=== PATIENT | female | born 1945 | race Caucasian/White ===

== ENCOUNTER → 2016-08-23 | Outpatient (CLI) | payer MEDICARE ==
[2016-08-23 10:04] LABS: Appearance,Urine Cloudy (Clear); Bilirubin,Urine Negative (Negative); Glucose,Urine (UA) Negative (Negative); Ketones,Urine Negative (Negative); Leukocyte Esterase,Urine Moderate (Negative); Mucus,Urine Rare /hpf; Nitrite,Urine Negative (Negative); Particle Count 6248; Protein,Urine Trace (Negative); RBC,Urine 1 /hpf (0-5); Specific Gravity,Urine 1.022 (1.001-1.035); Squamous Epithelial Cell,Urine 4 /hpf (0-4); UA Billing (MACRO vs. MICRO) MICRO; Urobilinogen,Urine <2.0 mg/dL (<2.0); WBC,Urine 2 /hpf (0-5)
[2016-08-23 10:18] LABS: ALT 38 U/L (9-52); AST 23 U/L (14-36); Alkaline Phosphatase 125 U/L (38-126); Anion Gap 10 mmol/L; Blood Urea Nitrogen 26 mg/dL (7-17); Calcium 10.3 mg/dL (8.4-10.2); Carbon Dioxide 26 mmol/L (22-30); Chloride 103 mmol/L (98-107); Cholesterol 136 mg/dL (<200); Glucose 133 mg/dL (74-99); HDL Cholesterol 59 mg/dL (40-60); Non-African American GFR(MDRD) >60 (>60 ml/min/1.73 sqM); Potassium 4.8 mmol/L (3.5-5.1); Sodium 139 mmol/L (137-145); Total Bilirubin 0.5 mg/dL (0.2-1.3); Total Protein 6.6 g/dL (6.3-8.2); Triglycerides 138 mg/dL (<150)
[2016-08-23 12:58] LABS: Hemoglobin A1C 6.6 % (4.2-6.1)
== END | disposition home or self-care (01) ==
LOC: LABWHC1 08:52
PROVIDERS: ATTEND Family Medicine
DX: Z00.00 Encounter for general adult medical examination without abnormal findings (principal); K21.0 Gastro-esophageal reflux disease with esophagitis; E78.5 Hyperlipidemia, unspecified; E11.9 Type 2 diabetes mellitus without complications
CPT/HCPCS: 36415; 80053; 80061; 81001; 82043; 83036

== ENCOUNTER → 2017-01-24 | Outpatient (CLI) | payer MEDICARE ==
[2017-01-24 11:05] LABS: ALT 35 U/L (9-52); AST 17 U/L (14-36); Alkaline Phosphatase 118 U/L (38-126); Anion Gap 10 mmol/L; Blood Urea Nitrogen 16 mg/dL (7-17); Calcium 9.3 mg/dL (8.4-10.2); Carbon Dioxide 24 mmol/L (22-30); Chloride 104 mmol/L (98-107); Cholesterol 141 mg/dL (<200); Glucose 157 mg/dL (74-99); HDL Cholesterol 62 mg/dL (40-60); Non-African American GFR(MDRD) >60 (>60 ml/min/1.73 sqM); Potassium 4.5 mmol/L (3.5-5.1); Sodium 138 mmol/L (137-145); Total Bilirubin 0.3 mg/dL (0.2-1.3); Total Protein 6.1 g/dL (6.3-8.2)
== END | disposition home or self-care (01) ==
LOC: LABWHC1 09:56
PROVIDERS: ATTEND Family Medicine
DX: Z00.00 Encounter for general adult medical examination without abnormal findings (principal); E78.5 Hyperlipidemia, unspecified; E11.9 Type 2 diabetes mellitus without complications; K21.0 Gastro-esophageal reflux disease with esophagitis
CPT/HCPCS: 36415; 80053; 80061; 83036

== ENCOUNTER → 2017-03-13 | Outpatient (CLI) | payer MEDICARE ==
--- NOTE | 2017-03-14 07:55 | MM ---
Reason for exam: screening (asymptomatic). Last mammogram was performed 1 year and 1 month ago. History: Patient is postmenopausal. Benign left mammotome panel of the left breast, August 09, 2007. Benign left mammotome panel of the left breast, August 09, 2007. Benign right mammotome panel of the right breast, October 19, 2006. Reductions of both breasts, June 2005. Benign right mammotome panel of the right breast, June 02, 2005. Benign excisional biopsy of the right breast, 1959. Physical Findings: A clinical breast exam by your physician is recommended on an annual basis and results should be correlated with mammographic findings. MG 3D Screening Mammo W/Cad Bilateral CC and MLO view(s) were taken. CV view(s) were taken of the left breast. Prior study comparison: February 07, 2016, bilateral MG 3d screening mammo w/cad. November 23, 2014, bilateral MG diagnostic mammo w CAD [facility]. There are scattered fibroglandular densities. Stable benign calcifications. Stable focal asymmetry inner left breast. No significant changes when compared with prior studies. ASSESSMENT: Benign, BI-RAD 2 RECOMMENDATION: Routine screening mammogram of both breasts in 1 year.
== END | disposition home or self-care (01) ==
LOC: RADMAMWWP 09:55
PROVIDERS: ATTEND Family Medicine
DX: Z12.31 Encounter for screening mammogram for malignant neoplasm of breast (principal)
CPT/HCPCS: 77063; G0202

== ENCOUNTER → 2017-05-23 | Outpatient (CLI) | payer MEDICARE ==
[2017-05-23 10:08] LABS: HCT 42.4 % (34.0-46.0); HGB 13.6 gm/dL (11.4-16.0); MCH 29.9 pg (25.0-35.0); MCHC 32.2 g/dL (31.0-37.0); Mean Platelet Volume 7.5; Platelet Count 187 k/uL (150-450); RBC 4.56 m/uL (3.80-5.40); WBC 4.5 k/uL (3.8-10.6)
[2017-05-23 10:23] LABS: ALT 42 U/L (9-52); AST 22 U/L (14-36); Albumin 4.1 g/dL (3.5-5.0); Alkaline Phosphatase 99 U/L (38-126); Anion Gap 11 mmol/L; Blood Urea Nitrogen 19 mg/dL (7-17); Calcium 10.1 mg/dL (8.4-10.2); Carbon Dioxide 28 mmol/L (22-30); Chloride 101 mmol/L (98-107); Cholesterol 140 mg/dL (<200); Glucose 170 mg/dL (74-99); HDL Cholesterol 66 mg/dL (40-60); LDL Cholesterol,Calculated 41 mg/dL (0-99); Potassium 4.2 mmol/L (3.5-5.1); Sodium 140 mmol/L (137-145); Total Bilirubin 0.3 mg/dL (0.2-1.3); Total Protein 6.4 g/dL (6.3-8.2); Triglycerides 165 mg/dL (<150)
[2017-05-23 18:35] LABS: Hemoglobin A1C 7.1 % (4.0-6.0)
== END | disposition home or self-care (01) ==
LOC: LABWHC1 09:16
PROVIDERS: ATTEND Family Medicine
DX: E78.5 Hyperlipidemia, unspecified (principal); E11.9 Type 2 diabetes mellitus without complications; K21.9 Gastro-esophageal reflux disease without esophagitis; D64.9 Anemia, unspecified
CPT/HCPCS: 36415; 80053; 80061; 83036; 85027

== ENCOUNTER → 2017-09-18 | Outpatient (CLI) | payer MEDICARE ==
[2017-09-18 10:00] LABS: MCH 28.4 pg (25.0-35.0); MCHC 31.8 g/dL (31.0-37.0); MCV 89.2 fL (80.0-100.0); Mean Platelet Volume 7.7; Platelet Count 216 k/uL (150-450); RBC 4.93 m/uL (3.80-5.40); RDW 13.4 % (11.5-15.5); WBC 5.1 k/uL (3.8-10.6)
[2017-09-18 10:20] LABS: ALT 19 U/L (9-52); AST 20 U/L (14-36); Albumin 4.2 g/dL (3.5-5.0); Alkaline Phosphatase 91 U/L (38-126); Anion Gap 13 mmol/L; Blood Urea Nitrogen 17 mg/dL (7-17); Calcium 10.2 mg/dL (8.4-10.2); Carbon Dioxide 29 mmol/L (22-30); Chloride 99 mmol/L (98-107); Cholesterol 131 mg/dL (<200); Glucose 196 mg/dL (74-99); HDL Cholesterol 60 mg/dL (40-60); LDL Cholesterol,Calculated 44 mg/dL (0-99); Potassium 4.8 mmol/L (3.5-5.1); Sodium 141 mmol/L (137-145); Total Bilirubin 0.5 mg/dL (0.2-1.3); Total Protein 6.3 g/dL (6.3-8.2); Triglycerides 135 mg/dL (<150)
== END | disposition home or self-care (01) ==
LOC: LABWHC1 08:56
PROVIDERS: ATTEND Family Medicine
DX: E11.9 Type 2 diabetes mellitus without complications (principal); K21.9 Gastro-esophageal reflux disease without esophagitis; E78.5 Hyperlipidemia, unspecified; D64.9 Anemia, unspecified
CPT/HCPCS: 36415; 80053; 80061; 83036; 85027

== ENCOUNTER → 2018-01-23 | Outpatient (CLI) | payer MEDICARE ==
[2018-01-23 10:11] LABS: HCT 39.8 % (34.0-46.0); HGB 12.6 gm/dL (11.4-16.0); Hypochromasia Slight; MCH 28.6 pg (25.0-35.0); MCHC 31.6 g/dL (31.0-37.0); MCV 90.3 fL (80.0-100.0); Mean Platelet Volume 7.4; Platelet Count 189 k/uL (150-450); RBC 4.41 m/uL (3.80-5.40); RDW 14.1 % (11.5-15.5); WBC 5.2 k/uL (3.8-10.6)
[2018-01-23 10:36] LABS: ALT 29 U/L (9-52); AST 16 U/L (14-36); Albumin 3.6 g/dL (3.5-5.0); Alkaline Phosphatase 90 U/L (38-126); Anion Gap 8 mmol/L; Blood Urea Nitrogen 17 mg/dL (7-17); Calcium 9.3 mg/dL (8.4-10.2); Carbon Dioxide 27 mmol/L (22-30); Chloride 103 mmol/L (98-107); Cholesterol 132 mg/dL (<200); Glucose 139 mg/dL (74-99); HDL Cholesterol 58 mg/dL (40-60); LDL Cholesterol,Calculated 39 mg/dL (0-99); Potassium 4.5 mmol/L (3.5-5.1); Sodium 138 mmol/L (137-145); Total Bilirubin 0.2 mg/dL (0.2-1.3); Triglycerides 177 mg/dL (<150)
== END | disposition home or self-care (01) ==
LOC: LABWHC1 08:52
PROVIDERS: ATTEND Family Medicine
DX: E11.9 Type 2 diabetes mellitus without complications (principal); K21.9 Gastro-esophageal reflux disease without esophagitis; E78.5 Hyperlipidemia, unspecified; D64.9 Anemia, unspecified
CPT/HCPCS: 36415; 80053; 80061; 83036; 85027

== ENCOUNTER → 2018-03-21 | Outpatient (CLI) | payer MEDICARE ==
--- NOTE | 2018-03-22 14:02 | MM ---
Reason for exam: screening (asymptomatic). Last mammogram was performed 1 year ago. History: Patient is postmenopausal. Benign left mammotome panel of the left breast, August 09, 2007. Benign left mammotome panel of the left breast, August 09, 2007. Benign right mammotome panel of the right breast, October 19, 2006. Reductions of both breasts, June 2005. Benign right mammotome panel of the right breast, June 02, 2005. Benign excisional biopsy of the right breast, 1959. Physical Findings: A clinical breast exam by your physician is recommended on an annual basis and results should be correlated with mammographic findings. MG 3D Screening Mammo W/Cad Bilateral CC, MLO, and XCCL view(s) were taken. Prior study comparison: March 13, 2017, bilateral MG 3d screening mammo w/cad. February 07, 2016, bilateral MG 3d screening mammo w/cad. The breast tissue is almost entirely fat. Previous mammotome biopsy in the right breast. No significant changes when compared with prior studies. ASSESSMENT: Benign, BI-RAD 2 RECOMMENDATION: Routine screening mammogram of both breasts in 1 year.
== END | disposition home or self-care (01) ==
LOC: RADMAMWWP 10:07
PROVIDERS: ATTEND Family Medicine
DX: Z12.31 Encounter for screening mammogram for malignant neoplasm of breast (principal)
CPT/HCPCS: 77063; 77067

== ENCOUNTER → 2018-09-26 | Outpatient (CLI) | payer MEDICARE ==
[2018-09-26 08:17] LABS: Basophils # (A) 0.1 k/uL (0-0.2); Basophils % (A) 1 %; Eosinophils # (A) 0.3 k/uL (0-0.7); Eosinophils % (A) 5 %; HGB 11.4 gm/dL (11.4-16.0); Hypochromasia Marked; Lymphocytes # (A) 1.6 k/uL (1.0-4.8); Lymphocytes % (A) 25 %; MCH 24.1 pg (25.0-35.0); MCHC 30.1 g/dL (31.0-37.0); MCV 79.9 fL (80.0-100.0); Mean Platelet Volume 7.7; Monocytes # (A) 0.4 k/uL (0-1.0); Monocytes % (A) 6 %; Neutrophils # (A) 3.8 k/uL (1.3-7.7); Neutrophils % (A) 60 %; Platelet Count 269 k/uL (150-450); RBC 4.75 m/uL (3.80-5.40); RDW 15.5 % (11.5-15.5); WBC 6.4 k/uL (3.8-10.6)
[2018-09-26 11:51] LABS: Albumin 4.4 g/dL (3.80-4.90); Albumin/Globulin Ratio 2.75 (1.60-3.17); Anion Gap 8.6 mmol/L (4.00-12.00); Calcium 9.6 mg/dL (8.7-10.3); Carbon Dioxide 25.4 mmol/L (21.6-31.8); Globulin 1.6 g/dL (1.6-3.3); LDL Cholesterol,Calculated 46.4 mg/dL (0.0-131.0); Potassium 4.3 mmol/L (3.5-5.5); Total Bilirubin 0.3 mg/dL (0.3-1.2); VLDL Calculation 27.6 mg/dL (5.00-40.00)
[2018-09-26 13:27] LABS: Hemoglobin A1C 8.3 % (4.0-6.0)
== END | disposition home or self-care (01) ==
LOC: LABWHC1 07:49
PROVIDERS: ATTEND Family Medicine
DX: E11.9 Type 2 diabetes mellitus without complications (principal); E78.5 Hyperlipidemia, unspecified
CPT/HCPCS: 36415; 80053; 80061; 83036; 85025

== ENCOUNTER → 2019-01-28 | Outpatient (CLI) | payer MEDICARE ==
[2019-01-28 10:00] LABS: Anisocytosis Slight; Basophils # (A) 0.1 k/uL (0-0.2); Basophils % (A) 1 %; Eosinophils # (A) 0.3 k/uL (0-0.7); Eosinophils % (A) 5 %; HCT 39.7 % (34.0-46.0); HGB 11.5 gm/dL (11.4-16.0); Hypochromasia Marked; Lymphocytes # (A) 1.7 k/uL (1.0-4.8); Lymphocytes % (A) 27 %; MCH 21.3 pg (25.0-35.0); MCV 73.5 fL (80.0-100.0); Mean Platelet Volume 7.8; Microcytosis Moderate; Monocytes # (A) 0.4 k/uL (0-1.0); Monocytes % (A) 6 %; Neutrophils # (A) 3.6 k/uL (1.3-7.7); Neutrophils % (A) 59 %; Platelet Count 276 k/uL (150-450); RBC 5.39 m/uL (3.80-5.40); RDW 17.6 % (11.5-15.5); WBC 6.1 k/uL (3.8-10.6)
[2019-01-28 17:37] LABS: Albumin 4.5 g/dL (3.80-4.90); Albumin/Globulin Ratio 3.21 (1.60-3.17); Anion Gap 12.4 mmol/L (4.00-12.00); BUN/Creat Ratio 21.11 Ratio (12.00-20.00); Calcium 9.8 mg/dL (8.7-10.3); Carbon Dioxide 23.6 mmol/L (21.6-31.8); Chol/HDL Ratio 1.97; Globulin 1.4 g/dL (1.6-3.3); LDL Cholesterol,Calculated 35.6 mg/dL (0.0-131.0); Potassium 4.6 mmol/L (3.5-5.5); Total Bilirubin 0.3 mg/dL (0.2-1.2); Total Protein 5.9 g/dL (6.2-8.2); VLDL Calculation 26.4 mg/dL (5.00-40.00)
[2019-01-28 21:20] LABS: Hemoglobin A1C 7.8 % (4.0-6.0)
== END | disposition home or self-care (01) ==
LOC: LABWHC1 09:06
PROVIDERS: ATTEND Family Medicine
DX: E11.9 Type 2 diabetes mellitus without complications (principal); E78.5 Hyperlipidemia, unspecified
CPT/HCPCS: 36415; 80053; 80061; 83036; 85025

== ENCOUNTER 2019-03-25 07:57 | Observation (INO) | payer MEDICARE ==
[2019-03-25] MEDS ORDERED: SODIUM CHLORIDE 0.9% 1,000 ML IV STA (08:20)
[2019-03-25] MEDS ORDERED: ONDANSETRON 4 MG/2 ML VIAL IVP STA (08:36)
--- NOTE | 2019-03-25 08:37 | ED ---
GI Bleed HPI - General Chief complaint: GI Bleed Stated complaint: rectal bleeding Time Seen by Provider: 03/25/19 08:06 Source: patient, RN notes reviewed Mode of arrival: ambulatory Limitations: no limitations - History of Present Illness Initial comments: This a 73-year-old female presents emergency Department with chief complaint abdominal pain, nausea and rectal bleeding. Patient states started yesterday around noon she started having some abdominal cramping. Patient states she had diffuse diarrhea states it was not bloody initially. She states that she is very nauseated so she went home and ate some chicken soup. Patient states that she woke up around 4:00 this morning states that she had a bowel movement states that it was very bloody in nature. She's had couple episodes after which have been persistently bloody but seems to be less in nature. She still has complaints of lower abdominal pain and cramping. She has no history of bowel infections including diverticulitis or colitis. Patient does admit that she's had prior hysterectomy, cholecystectomy, appendectomy. Patient reports no dysuria no hematuria - Related Data Home Medications Medication Instructions Recorded Confirmed Cyclobenzaprine [Flexeril] 10 mg PO BID 04/22/14 03/25/19 Hydrochlorothiazide [Hydrodiuril] 25 mg PO DAILY PRN 04/22/14 03/25/19 Metoprolol Succinate [Toprol XL] 25 mg PO HS 04/22/14 03/25/19 Potassium Chloride [Klor-Con 20] 20 meq PO BID 04/22/14 03/25/19 Simvastatin [Zocor] 20 mg PO QAM 04/22/14 03/25/19 Aspirin 325 mg PO DAILY 03/25/19 03/25/19 Celecoxib [CeleBREX] 200 mg PO DAILY 03/25/19 03/25/19 Empagliflozin [Jardiance] 10 mg PO DAILY 03/25/19 03/25/19 Loratadine [Claritin] 10 mg PO DAILY 03/25/19 03/25/19 glipiZIDE [Glucotrol] 10 mg PO AC-BID 03/25/19 03/25/19 metFORMIN HCL ER [Glucophage Xr] 1,000 mg PO BID 03/25/19 03/25/19 Allergies Allergy/AdvReac Type Severity Reaction Status Date / Time codeine Allergy Anaphylaxis Verified 03/25/19 09:34 latex Allergy + ON Verified 03/25/19 09:34 ALLERGY TEST Review of Systems ROS Statement: Those systems with pertinent positive or pertinent negative responses have been documented in the HPI. ROS Other: All systems not noted in ROS Statement are negative. Past Medical History Past Medical History: Diabetes Mellitus, Deep Vein Thrombosis (DVT), Hyperlipidemia, Hypertension, Osteoarthritis (OA) Additional Past Medical History / Comment(s): DVT-1993 History of Any Multi-Drug Resistant Organisms: None Reported Past Surgical History: Adenoidectomy, Appendectomy, Tonsillectomy Additional Past Surgical History / Comment(s): RT ROTATOR CUFF REPAIR. BREAST REDUCTION. BIOPSY BILAT BREAST X 2. COLONOSCOPY Past Anesthesia/Blood Transfusion Reactions: Postoperative Nausea & Vomiting (PONV) Smoking Status: Former smoker Past Alcohol Use History: Rare Past Drug Use History: Unable to Obtain - Past Family History Mother Family Medical History: Cancer General Exam Limitations: no limitations General appearance: alert, in no apparent distress Head exam: Present: atraumatic, normocephalic, normal inspection Eye exam: Present: normal appearance, PERRL, EOMI. Absent: scleral icterus, conjunctival injection, periorbital swelling ENT exam: Present: normal exam, normal oropharynx, mucous membranes moist, TM's normal bilaterally Neck exam: Present: normal inspection. Absent: tenderness, meningismus, lymphadenopathy Respiratory exam: Present: normal lung sounds bilaterally. Absent: respiratory distress, wheezes, rales, rhonchi, stridor Cardiovascular Exam: Present: normal rhythm, tachycardia, normal heart sounds. Absent: systolic murmur, diastolic murmur, rubs, gallop, clicks GI/Abdominal exam: Present: soft, tenderness (Mild lower abdominal tenderness), normal bowel sounds. Absent: distended, guarding, rebound, rigid Course Vital Signs 03/25/19 03/25/19 08:00 08:39 Temperature 99.0 F Pulse Rate 109 H Respiratory 22 Rate Blood Pressure 132/75 O2 Sat by Pulse 95 Oximetry Medical Decision Making - Medical Decision Making CT shows evidence of severe long segment colitis, infectious versus ischemic. Patient will be admitted for IV antibiotics, repeat H&H, chest surgery consult was started on antibiotics. - Lab Data Result diagrams: 03/25/19 08:25 03/25/19 08:25 Lab Results 03/25/19 03/25/19 03/25/19 Range/Units 08:25 08:25 08:25 WBC 13.8 H (3.8-10.6) k/uL RBC 5.22 (3.80-5.40) m/uL Hgb 11.2 L (11.4-16.0) gm/dL Hct 38.0 (34.0-46.0) % MCV 72.7 L (80.0-100.0) fL MCH 21.5 L (25.0-35.0) pg MCHC 29.5 L (31.0-37.0) g/dL RDW 16.8 H (11.5-15.5) % Plt Count 296 (150-450) k/uL Neutrophils % 87 % Lymphocytes % 6 % Monocytes % 5 % Eosinophils % 1 % Basophils % 1 % Neutrophils # 12.0 H (1.3-7.7) k/uL Lymphocytes # 0.8 L (1.0-4.8) k/uL Monocytes # 0.7 (0-1.0) k/uL Eosinophils # 0.1 (0-0.7) k/uL Basophils # 0.1 (0-0.2) k/uL Hypochromasia Marked Anisocytosis Slight Microcytosis Moderate PT (9.0-12.0) sec INR (<1.2) APTT (22.0-30.0) sec Sodium 137 (137-145) mmol/L Potassium 4.5 (3.5-5.1) mmol/L Chloride 103 (98-107) mmol/L Carbon Dioxide 21 L (22-30) mmol/L Anion Gap 13 mmol/L BUN 18 H (7-17) mg/dL Creatinine 0.79 (0.52-1.04) mg/dL Est GFR (CKD-EPI)AfAm 86 (>60 ml/min/1.73 sqM) Est GFR (CKD-EPI)NonAf 75 (>60 ml/min/1.73 sqM) Glucose 223 H (74-99) mg/dL Plasma Lactic Acid Jermaine 1.2 (0.7-2.0) mmol/L Calcium 10.0 (8.4-10.2) mg/dL Magnesium 1.7 (1.6-2.3) mg/dL Total Bilirubin 0.5 (0.2-1.3) mg/dL AST 28 (14-36) U/L ALT 35 (9-52) U/L Alkaline Phosphatase 72 (38-126) U/L Troponin I (0.000-0.034) ng/mL Total Protein 6.3 (6.3-8.2) g/dL Albumin 3.8 (3.5-5.0) g/dL Lipase 120 (23-300) U/L 03/25/19 03/25/19 Range/Units 08:25 08:25 WBC (3.8-10.6) k/uL RBC (3.80-5.40) m/uL Hgb (11.4-16.0) gm/dL Hct (34.0-46.0) % MCV (80.0-100.0) fL MCH (25.0-35.0) pg MCHC (31.0-37.0) g/dL RDW (11.5-15.5) % Plt Count (150-450) k/uL Neutrophils % % Lymphocytes % % Monocytes % % Eosinophils % % Basophils % % Neutrophils # (1.3-7.7) k/uL Lymphocytes # (1.0-4.8) k/uL Monocytes # (0-1.0) k/uL Eosinophils # (0-0.7) k/uL Basophils # (0-0.2) k/uL Hypochromasia Anisocytosis Microcytosis PT 9.7 (9.0-12.0) sec INR 0.9 (<1.2) APTT 22.0 (22.0-30.0) sec Sodium (137-145) mmol/L Potassium (3.5-5.1) mmol/L Chloride (98-107) mmol/L Carbon Dioxide (22-30) mmol/L Anion Gap mmol/L BUN (7-17) mg/dL Creatinine (0.52-1.04) mg/dL Est GFR (CKD-EPI)AfAm (>60 ml/min/1.73 sqM) Est GFR (CKD-EPI)NonAf (>60 ml/min/1.73 sqM) Glucose (74-99) mg/dL Plasma Lactic Acid Jermaine (0.7-2.0) mmol/L Calcium (8.4-10.2) mg/dL Magnesium (1.6-2.3) mg/dL Total Bilirubin (0.2-1.3) mg/dL AST (14-36) U/L ALT (9-52) U/L Alkaline Phosphatase (38-126) U/L Troponin I <0.012 (0.000-0.034) ng/mL Total Protein (6.3-8.2) g/dL Albumin (3.5-5.0) g/dL Lipase (23-300) U/L - EKG Data -: EKG Interpreted by Me EKG Comments: EKG performed at 8:38 sinus tachycardia rate of 12 ND 154 QRS 78 QT/QTC 332/432 Disposition Clinical Impression: GI bleed, Infectious colitis Disposition: ADMITTED IP TO THIS HOSP Condition: Fair Referrals: Khris Patino DO [Primary Care Provider] - 1-2 days
[2019-03-25 08:53] LABS: Anisocytosis Slight; Basophils # (A) 0.1 k/uL (0-0.2); Basophils % (A) 1 %; Eosinophils # (A) 0.1 k/uL (0-0.7); Eosinophils % (A) 1 %; HGB 11.2 gm/dL (11.4-16.0); Hypochromasia Marked; Lymphocytes # (A) 0.8 k/uL (1.0-4.8); Lymphocytes % (A) 6 %; MCH 21.5 pg (25.0-35.0); MCHC 29.5 g/dL (31.0-37.0); MCV 72.7 fL (80.0-100.0); Microcytosis Moderate; Monocytes # (A) 0.7 k/uL (0-1.0); Monocytes % (A) 5 %; Neutrophils % (A) 87 %; Platelet Count 296 k/uL (150-450); RBC 5.22 m/uL (3.80-5.40); RDW 16.8 % (11.5-15.5); WBC 13.8 k/uL (3.8-10.6)
[2019-03-25 08:55] LABS: Albumin 3.8 g/dL (3.5-5.0); Magnesium 1.7 mg/dL (1.6-2.3); Potassium 4.5 mmol/L (3.5-5.1); Total Bilirubin 0.5 mg/dL (0.2-1.3); Total Protein 6.3 g/dL (6.3-8.2)
[2019-03-25 08:56] LABS: INR 0.9 (<1.2); Prothrombin Time 9.7 sec (9.0-12.0)
--- NOTE | 2019-03-25 09:36 | CT ---
EXAMINATION TYPE: CT abdomen pelvis w con DATE OF EXAM: 03/25/2019 HISTORY: Rectal bleeding CT DLP: 1401.4mGycm Automated Exposure Control for Dose Reduction was Utilized. CONTRAST: CT scan of the abdomen and pelvis is performed with IV Contrast, patient injected with 100 mL of Isov ue 300. COMPARISON: None. FINDINGS: LUNG BASES: Linear scarring in the right middle lobe. Moderate hiatal hernia. LIVER/GB: Hepatic parenchyma is diffusely hypoattenuated in comparison to that of the spleen, most co mmonly seen in hepatic steatosis. This finding limits evaluation for hepatic masses. Benign cyst is s een of the left hepatic lobe measuring 2.5 cm. Benign punctate hepatic granuloma is present. Gallblad reyes surgically absent. PANCREAS: No significant abnormality is seen. SPLEEN: No splenomegaly. ADRENALS: No nodularity or thickening. KIDNEYS: Lobulated contour that may relate to persistent lobulation or multifocal scarring. Kid neys enhance and excrete symmetrically. BOWEL: There is focal bowel wall thickening and pericolonic fat stranding of the splenic flexure and proximal descending colon. There is a single diverticula identified. Free fluid tracks on the lateral conal fascia. No pericolonic fluid collection to suggest abscess at this time. No dilated bowel prox imally to suggest reactive ileus. No obstruction. Sigmoid diverticula are scattered throughout. No di lated small bowel. Cluster loops of prominent small bowel in the left mid abdomen are likely on the b asis of focal reactive ileus of the small bowel with decompressed loops of small bowel in the right a bdomen. No portal venous gas or pneumatosis coli. No thrombus in the proximal SMA or BI. LYMPH NODES: No greater than 1cm abdominal or pelvic lymph nodes are appreciated. OSSEOUS STRUCTURES: Moderate multilevel degenerative changes of the lumbar spine and severe of the vi sualized thoracolumbar junction. IMPRESSION: 1. Severe acute long segment colitis of the hepatic flexure and proximal descending colon. Trace amou nt of adjacent free fluid. Cholecystitis is uncomplicated without pneumoperitoneum nor pericolonic ab scess at this time. It is noted that this is a watershed area and inflammatory, infectious, or ischem ic colitis are possibilities. No proximal thrombus is seen of the superior mesenteric artery nor infe rior mesenteric artery. No secondary sequela of ischemic colitis as there is no pneumatosis coli nor portal venous gas. 2. Mild degree hepatic steatosis and benign left hepatic cyst.
[2019-03-25] MEDS ORDERED: HYDROcodone/APAP 5-325MG 1 EACH TAB PO PRN (10:22)
[2019-03-25] MEDS ORDERED: NALOXONE 0.4 MG/ML 1 ML VIAL IV PRN (10:22)
[2019-03-25] MEDS ORDERED: ONDANSETRON 4 MG/2 ML VIAL IVP PRN (10:22)
[2019-03-25] MEDS ORDERED: PIPERACILLIN-TAZOBACTAM 3.375 GM in SODIUM CHLORIDE 0.9% 100 ML IVPB STA (10:23)
[2019-03-25] MEDS: SODIUM CHLORIDE 0.9% 1,000 ML IV SCH ×2 (10:39→23:51)
[2019-03-25 11:04] LABS: Appearance,Urine Clear (Clear); Bilirubin,Urine Negative (Negative); Blood,Urine Trace (Negative); Color,Urine Light Yellow; Glucose,Urine (UA) 4+ (Negative); Leukocyte Esterase,Urine Trace (Negative); Mucus,Urine Rare /hpf; Nitrite,Urine Negative (Negative); Protein,Urine Negative (Negative); RBC,Urine 2 /hpf (0-5); Squamous Epithelial Cell,Urine 1 /hpf (0-4); Urobilinogen,Urine <2.0 mg/dL (<2.0); WBC,Urine 3 /hpf (0-5)
[2019-03-25 11:13] LABS: Ketones,Urine 2+ (Negative)
[2019-03-25 11:54] LABS: Glucose,Whole Blood 189 mg/dL (75-99)
[2019-03-25] MEDS: INSULIN ASPART (NovoLOG) 100 UNIT/ML VIAL SQ SCH ×3 (12:00→20:59)
[2019-03-25] MEDS: ACETAMINOPHEN TAB 325 MG TAB PO PRN ×2 (12:05→18:05)
[2019-03-25] MEDS ORDERED: PEG 3350-NA SULF,BICARB,CL/KCL 4,000 ML BOTTLE PO ONE (12:16)
--- NOTE | 2019-03-25 15:39 | P.GSCN ---
History of Present Illness Consult date: 03/25/19 Reason for Consult: colitis, GI bleed Requesting physician: Navin Hernandez History of present illness: CHIEF COMPLAINT: Colitis, rectal bleeding HISTORY OF PRESENT ILLNESS: 73-year-old female who presented to the emergency room due to abdominal pain and rectal bleeding. Patient states she began having bilateral lower quadrant abdominal pain yesterday around noon. She states she just finished eating and a calcium wedge. She reports feeling weak and shaky yesterday also. She reports multiple episodes of diarrhea yesterday. Reports nausea yesterday but no emesis. She woke up at approximately 0400 this morning and began having large amounts of bright red blood per rectum. Patient reports she has never experienced rectal bleeding like this before. PAST MEDICAL HISTORY: See list. PAST SURGICAL HISTORY: See list. SOCIAL HISTORY: No illicit drug use. REVIEW OF SYSTEMS: CONSTITUTIONAL: Denies fever or chills. Reports feeling weak and shaky yesterday. HEENT: Denies blurred vision, vision changes, or eye pain. Denies hemoptysis CARDIOVASCULAR: Denies chest pain or pressure. RESPIRATORY: No shortness of breath. GASTROINTESTINAL: Refer to HPI for pertinent findings HEMATOLOGIC: Denies bleeding disorders. GENITOURINARY: Denies any blood in urine. SKIN: Denies pruitis. Denies rash. PHYSICAL EXAM: VITAL SIGNS: Reviewed. GENERAL: Well-developed in no acute distress. HEENT: No sclera icterus. Extraocular movements grossly intact. Moist buccal mucosa. Head is atraumatic, normocephalic. ABDOMEN: Soft. Nondistended. Nontender. Positive bowel sounds. no peritoneal signs. NEUROLOGIC: Alert and oriented. Cranial nerves II through XII grossly intact. LABORATORY DATA: WBC 13.8. Hemoglobin 11.2. Platelet count 296. IMAGING: CT abdomen and pelvis: Moderate hiatal hernia. Severe acute long segment colitis of the hepatic flexure and proximal descending colon. Trace amount of adjacent free fluid. ASSESSMENT: 1. Bilateral lower quadrant abdominal pain 2. Bright red blood per rectum 3. Severe acute long segment colitis of the hepatic flexure and proximal descending colon 4. Moderate hiatal hernia 5. History of cholecystectomy PLAN: 1. Monitor WBC. Continue IV Zosyn 2. Clear liquid diet. Nothing by mouth at midnight 3. GoLYTELY bowel prep today 4. Patient to undergo colonoscopy tomorrow with Dr. Lewis Nurse practitioner note has been reviewed by physician. Signing provider agrees with the documented findings, assessment, and plan of care. 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 Past Anesthesia/Blood Transfusion Reactions: Motion Sickness, Postoperative Nausea & Vomiting (PONV) Smoking Status: Former smoker - Past Family History Mother Family Medical History: Cancer Additional Family Medical History / Comment(s): Mother of multiple myeloma at the age of 67yrs. Father Family Medical History: Congestive Heart Failure (CHF), Vascular Disorder Additional Family Medical History / Comment(s): Father from a ruptured aortic aneurysm at the age of 76yrs. His mother from the same thing. Medications and Allergies Home Medications Medication Instructions Recorded Confirmed Type Cyclobenzaprine [Flexeril] 10 mg PO BID 04/22/14 03/25/19 History Hydrochlorothiazide [Hydrodiuril] 25 mg PO DAILY PRN 04/22/14 03/25/19 History Metoprolol Succinate [Toprol XL] 25 mg PO HS 04/22/14 03/25/19 History Potassium Chloride [Klor-Con 20] 20 meq PO BID 04/22/14 03/25/19 History Simvastatin [Zocor] 20 mg PO QAM 04/22/14 03/25/19 History Aspirin 325 mg PO DAILY 03/25/19 03/25/19 History Celecoxib [CeleBREX] 200 mg PO DAILY 03/25/19 03/25/19 History Empagliflozin [Jardiance] 10 mg PO DAILY 03/25/19 03/25/19 History Loratadine [Claritin] 10 mg PO DAILY 03/25/19 03/25/19 History glipiZIDE [Glucotrol] 10 mg PO AC-BID 03/25/19 03/25/19 History metFORMIN HCL ER [Glucophage Xr] 1,000 mg PO BID 03/25/19 03/25/19 History Allergies Allergy/AdvReac Type Severity Reaction Status Date / Time codeine Allergy Anaphylaxis Verified 03/25/19 09:34 latex Allergy + ON Verified 03/25/19 09:34 ALLERGY TEST Surgical - Exam Vital Signs Temp Pulse Resp BP 99.0 F 109 H 22 132/75 03/25/19 08:00 03/25/19 08:00 03/25/19 08:00 03/25/19 08:00 Results - Labs 03/25/19 08:25 03/25/19 08:25 Abnormal Lab Results - Last 24 Hours (Table) 03/25/19 03/25/19 03/25/19 Range/Units 08:25 08:25 10:30 WBC 13.8 H (3.8-10.6) k/uL Hgb 11.2 L (11.4-16.0) gm/dL MCV 72.7 L (80.0-100.0) fL MCH 21.5 L (25.0-35.0) pg MCHC 29.5 L (31.0-37.0) g/dL RDW 16.8 H (11.5-15.5) % Neutrophils # 12.0 H (1.3-7.7) k/uL Lymphocytes # 0.8 L (1.0-4.8) k/uL Carbon Dioxide 21 L (22-30) mmol/L BUN 18 H (7-17) mg/dL Glucose 223 H (74-99) mg/dL POC Glucose (mg/dL) (75-99) mg/dL Ur Specific [employer] 1.050 H (1.001-1.035) Urine Glucose (UA) 4+ H (Negative) Urine Ketones 2+ H (Negative) Urine Blood Trace H (Negative) Ur Leukocyte Esterase Trace H (Negative) Urine Mucus Rare H (None) /hpf 03/25/19 Range/Units 11:51 WBC (3.8-10.6) k/uL Hgb (11.4-16.0) gm/dL MCV (80.0-100.0) fL MCH (25.0-35.0) pg MCHC (31.0-37.0) g/dL RDW (11.5-15.5) % Neutrophils # (1.3-7.7) k/uL Lymphocytes # (1.0-4.8) k/uL Carbon Dioxide (22-30) mmol/L BUN (7-17) mg/dL Glucose (74-99) mg/dL POC Glucose (mg/dL) 189 H (75-99) mg/dL Ur Specific [employer] (1.001-1.035) Urine Glucose (UA) (Negative) Urine Ketones (Negative) Urine Blood (Negative) Ur Leukocyte Esterase (Negative) Urine Mucus (None) /hpf Diabetes panel 03/25/19 Range/Units 08:25 Sodium 137 (137-145) mmol/L Potassium 4.5 (3.5-5.1) mmol/L Chloride 103 (98-107) mmol/L Carbon Dioxide 21 L (22-30) mmol/L BUN 18 H (7-17) mg/dL Creatinine 0.79 (0.52-1.04) mg/dL Glucose 223 H (74-99) mg/dL Calcium 10.0 (8.4-10.2) mg/dL AST 28 (14-36) U/L ALT 35 (9-52) U/L Alkaline Phosphatase 72 (38-126) U/L Total Protein 6.3 (6.3-8.2) g/dL Albumin 3.8 (3.5-5.0) g/dL Calcium panel 03/25/19 Range/Units 08:25 Calcium 10.0 (8.4-10.2) mg/dL Albumin 3.8 (3.5-5.0) g/dL Pituitary panel 03/25/19 Range/Units 08:25 Sodium 137 (137-145) mmol/L Potassium 4.5 (3.5-5.1) mmol/L Chloride 103 (98-107) mmol/L Carbon Dioxide 21 L (22-30) mmol/L BUN 18 H (7-17) mg/dL Creatinine 0.79 (0.52-1.04) mg/dL Glucose 223 H (74-99) mg/dL Calcium 10.0 (8.4-10.2) mg/dL Adrenal panel 03/25/19 Range/Units 08:25 Sodium 137 (137-145) mmol/L Potassium 4.5 (3.5-5.1) mmol/L Chloride 103 (98-107) mmol/L Carbon Dioxide 21 L (22-30) mmol/L BUN 18 H (7-17) mg/dL Creatinine 0.79 (0.52-1.04) mg/dL Glucose 223 H (74-99) mg/dL Calcium 10.0 (8.4-10.2) mg/dL Total Bilirubin 0.5 (0.2-1.3) mg/dL AST 28 (14-36) U/L ALT 35 (9-52) U/L Alkaline Phosphatase 72 (38-126) U/L Total Protein 6.3 (6.3-8.2) g/dL Albumin 3.8 (3.5-5.0) g/dL
[2019-03-25] MEDS: PIPERACILLIN-TAZOBACTAM 3.375 GM in SODIUM CHLORIDE 0.9% 100 ML IVPB SCH ×2 (16:02→23:50)
[2019-03-25 16:40] LABS: Glucose,Whole Blood 200 mg/dL (75-99)
[2019-03-25] MEDS: glipiZIDE 10 MG TAB PO SCH (17:58)
[2019-03-25 18:38] LABS: Anisocytosis Slight; Basophils # (A) 0.1 k/uL (0-0.2); Basophils % (A) 1 %; Eosinophils # (A) 0.1 k/uL (0-0.7); Eosinophils % (A) 1 %; HCT 37.4 % (34.0-46.0); HGB 11.1 gm/dL (11.4-16.0); Hypochromasia Marked; Lymphocytes # (A) 1.2 k/uL (1.0-4.8); Lymphocytes % (A) 10 %; MCH 21.9 pg (25.0-35.0); MCHC 29.7 g/dL (31.0-37.0); MCV 73.6 fL (80.0-100.0); Mean Platelet Volume 6.3; Microcytosis Moderate; Monocytes # (A) 0.7 k/uL (0-1.0); Monocytes % (A) 6 %; Neutrophils # (A) 9.3 k/uL (1.3-7.7); Neutrophils % (A) 81 %; Platelet Count 229 k/uL (150-450); RBC 5.08 m/uL (3.80-5.40); RDW 16.8 % (11.5-15.5); WBC 11.6 k/uL (3.8-10.6)
[2019-03-25 20:51] LABS: Glucose,Whole Blood 161 mg/dL (75-99)
[2019-03-25] MEDS: POTASSIUM CHLORIDE ER 20 MEQ TAB.ER PO SCH (20:58)
[2019-03-25] MEDS: METOPROLOL SUCCINATE (ER) 25 MG TAB.ER.24H PO SCH (20:58)
[2019-03-25] MEDS: metFORMIN 500 MG TAB PO SCH (20:58)
[2019-03-25] MEDS: CYCLOBENZAPRINE 10 MG TAB PO SCH (20:59)
[2019-03-26 07:09] LABS: Glucose,Whole Blood 154 mg/dL (75-99)
[2019-03-26] MEDS: NON FORMULARY DRUG (Empagliflozin [Jardiance] 10 MG) PO SCH (08:57)
[2019-03-26] MEDS: metFORMIN 500 MG TAB PO SCH ×2 (08:59→20:53)
[2019-03-26] MEDS: PIPERACILLIN-TAZOBACTAM 3.375 GM in SODIUM CHLORIDE 0.9% 100 ML IVPB SCH ×3 (08:59→23:37)
[2019-03-26] MEDS: LORATADINE 10 MG TAB PO SCH (08:59)
[2019-03-26] MEDS: glipiZIDE 10 MG TAB PO SCH ×2 (08:59→17:11)
[2019-03-26] MEDS: CYCLOBENZAPRINE 10 MG TAB PO SCH ×2 (08:59→20:53)
[2019-03-26] MEDS: ATORVASTATIN 10 MG TAB PO SCH (08:59)
[2019-03-26] MEDS: POTASSIUM CHLORIDE ER 20 MEQ TAB.ER PO SCH ×2 (08:59→20:53)
[2019-03-26] MEDS ORDERED: ASPIRIN 325 MG TAB PO SCH (09:00)
[2019-03-26] MEDS: INSULIN ASPART (NovoLOG) 100 UNIT/ML VIAL SQ SCH ×4 (09:00→20:53)
[2019-03-26] MEDS ORDERED: MELOXICAM 7.5 MG TAB PO SCH (09:00)
[2019-03-26] MEDS ORDERED: PROPOFOL 10 MG/ML 20 ML VIAL IV ONE (09:16)
[2019-03-26] MEDS ORDERED: GLUCAGON 1 MG/ML VIAL ONE (09:16)
[2019-03-26 09:17] LABS: Anisocytosis Slight; Basophils % (A) 0 %; Eosinophils # (A) 0.1 k/uL (0-0.7); Eosinophils % (A) 1 %; HCT 33.5 % (34.0-46.0); HGB 10.1 gm/dL (11.4-16.0); Hypochromasia Marked; Lymphocytes # (A) 1.1 k/uL (1.0-4.8); Lymphocytes % (A) 9 %; MCH 22.2 pg (25.0-35.0); MCV 74.1 fL (80.0-100.0); Mean Platelet Volume 6.5; Microcytosis Moderate; Monocytes # (A) 0.7 k/uL (0-1.0); Monocytes % (A) 6 %; Neutrophils % (A) 83 %; Platelet Count 231 k/uL (150-450); RBC 4.53 m/uL (3.80-5.40); RDW 16.8 % (11.5-15.5); WBC 12.1 k/uL (3.8-10.6)
[2019-03-26] MEDS ORDERED: IV FLUID CONTINUATION 1,000 ML IV ONE ×2 (09:17)
--- NOTE | 2019-03-26 09:38 | P.OP ---
Date of Procedure: 03/26/19 Preoperative Diagnosis: Colitis Postoperative Diagnosis: Colitis Poor colon prep Procedure(s) Performed: Colonoscopy Anesthesia: MAC Pathology: none sent ([facility]) Condition: stable Disposition: PACU Description of Procedure: The patient's placed on the endoscopy table in the lateral position. She received IV sedation. Digital rectal exam was performed which revealed no abnormalities. There was a large amount liquid stool. Flexible colonoscope was then placed patient anus passed with colon. There was a large amount of liquid stool in the rectum. There was a large amount of dual throughout the entire colon. The scope passed beyond the sigmoid colon secondary to a large amount stool. The colonic mucosa appeared to be minimal inflamed. Decided not to advance the colonoscope to potential injury the colon. This point scope was withdrawn. There were no polyps or tumors seen in the sigmoid colon rectum. However the view was quite limited due to poor prep scope was withdrawn for patient.
[2019-03-26 09:51] LABS: African American GFR (CKD) >90 (>60 ml/min/1.73 sqM); Anion Gap 10 mmol/L; Blood Urea Nitrogen 9 mg/dL (7-17); Calcium 8.8 mg/dL (8.4-10.2); Carbon Dioxide 21 mmol/L (22-30); Chloride 107 mmol/L (98-107); Glucose 131 mg/dL (74-99); Magnesium 1.7 mg/dL (1.6-2.3); Non-African American GFR(CKD) 87 (>60 ml/min/1.73 sqM); Potassium 4.2 mmol/L (3.5-5.1); Sodium 138 mmol/L (137-145)
[2019-03-26 11:38] LABS: Glucose,Whole Blood 171 mg/dL (75-99)
[2019-03-26] MEDS: SODIUM CHLORIDE 0.9% 1,000 ML IV SCH (13:21)
[2019-03-26 16:45] LABS: Glucose,Whole Blood 170 mg/dL (75-99)
[2019-03-26] MEDS: METOPROLOL SUCCINATE (ER) 25 MG TAB.ER.24H PO SCH (20:53)
[2019-03-26 20:55] LABS: Glucose,Whole Blood 176 mg/dL (75-99)
--- NOTE | 2019-03-26 23:03 | P.HPIM ---
History of Present Illness H&P Date: 03/26/19 This a pleasant 73-year-old white female who is known to my practice for suffering years of diabetes she now presented to the emergency department with acute gastrointestinal bleeding with bright red blood per rectum also problems with apparent infectious colitis. She denies any recent travel she denies any recent ingestion of food of suspicious nature. She denies any vomiting. Her sugars have been pretty well maintained and she is currently awaiting colonoscopy which she has done her prep overnight for. Review of Systems GENERAL: Patient denies fever. Denies chills. EYES: Denies blurred vision. Denies vision changes. Denies eye pain. EARS, NOSE, MOUTH, & THROAT: Denies headache. Denies sore throat. Denies ear pain. RESPIRATORY: Denies cough. Denies shortness of breath. Denies sputum production. Denies hemoptysis. CARDIOVASCULAR: Denies chest pain or pressure. Denies palpitations. Denies arrhythmias. GASTROINTESTINAL: Denies abdominal pain. Positive for diarrhea. Denies constipation. Denies nausea. Denies vomiting. Denies heartburn. Has blood in the stool. GENITOURINARY: Denies urinary frequency. Denies burning. Denies dysuria. Denies cloudy urine. Denies blood in the urine. MUSCULOSKELETAL: Denies myalgias. Denies joint swelling. Denies decreased range of motion beyond patients baseline. INTEGUMENTARY: Denies pruitis. Denies rash. PSYCHIATRIC: Denies suicidal or homicial ideations. ENDOCRINE: Denies weight change. Denies polydipsia. Denies polyuria. HEMATOLOGIC: Denies bleeding disorders. 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 Past Anesthesia/Blood Transfusion Reactions: Motion Sickness, Postoperative Nausea & Vomiting (PONV) Smoking Status: Former smoker - Past Family History Mother Family Medical History: Cancer Additional Family Medical History / Comment(s): Mother of multiple myeloma at the age of 67yrs. Father Family Medical History: Congestive Heart Failure (CHF), Vascular Disorder Additional Family Medical History / Comment(s): Father from a ruptured aortic aneurysm at the age of 76yrs. His mother from the same thing. Medications and Allergies Home Medications Medication Instructions Recorded Confirmed Type Cyclobenzaprine [Flexeril] 10 mg PO BID 04/22/14 03/25/19 History Hydrochlorothiazide [Hydrodiuril] 25 mg PO DAILY PRN 04/22/14 03/25/19 History Metoprolol Succinate [Toprol XL] 25 mg PO HS 04/22/14 03/25/19 History Potassium Chloride [Klor-Con 20] 20 meq PO BID 04/22/14 03/25/19 History Simvastatin [Zocor] 20 mg PO QAM 04/22/14 03/25/19 History Aspirin 325 mg PO DAILY 03/25/19 03/25/19 History Celecoxib [CeleBREX] 200 mg PO DAILY 03/25/19 03/25/19 History Empagliflozin [Jardiance] 10 mg PO DAILY 03/25/19 03/25/19 History Loratadine [Claritin] 10 mg PO DAILY 03/25/19 03/25/19 History glipiZIDE [Glucotrol] 10 mg PO AC-BID 03/25/19 03/25/19 History metFORMIN HCL ER [Glucophage Xr] 1,000 mg PO BID 03/25/19 03/25/19 History Allergies Allergy/AdvReac Type Severity Reaction Status Date / Time codeine Allergy Anaphylaxis Verified 03/25/19 09:34 latex Allergy + ON Verified 03/25/19 09:34 ALLERGY TEST Physical Exam Osteopathic Statement: *. No significant issues noted on an osteopathic structural exam other than those noted in the History and Physical/Consult. Vitals: Vital Signs Temp Pulse Resp BP Pulse Ox 03/26/19 13:39 99.3 F 110 H 18 133/75 94 L 03/26/19 09:07 98.0 F 99 20 123/70 03/26/19 05:33 98.0 F 99 20 123/70 94 L Intake and Output 03/26/19 03/26/19 03/26/19 06:59 14:59 22:59 Intake Total 600 1540 540 Balance 600 1540 540 Intake: IV 1000 Piperacillin-Tazobactam 3 100 .375 gm In Sodium Chloride 0.9% 100 ml @ 25 mls/hr IVPB Q8HR [facility] Rx# :[id number] Sodium Chloride 0.9% 1, 600 000 ml @ 75 mls/hr IV . [id number] [facility] Rx#:[id number] Intake, IV Titration 600 Amount Sodium Chloride 0.9% 1, 600 000 ml @ 75 mls/hr IV . [id number] [facility] Rx#:[id number] Oral 540 540 Other: # Voids 2 4 # Bowel Movements 1 2 GENERAL: This is a -73 year-old in no apparent distress at the time of examination. Pleasant and cooperative. HEENT: Head is atraumatic, normocephalic. Pupils are equal, round, and reactive to light. Sclerae anicteric. Conjunctivae are clear. Mucus membranes of the mouth are moist. Neck is supple. RESPIRATORY: Clear to auscultation. No wheezes, rales, or rhonchi. No use of accessory muscles. Patient maintaining oxygen saturation greater than 92%. No chest wall tenderness is noted on palpation or with deep breathing. CARDIOVASCULAR: Regular rate and rhythm. S1 and S2 noted. No systolic or diastolic murmur auscultated. No JVD noted. No S3 or S4 noted. GASTROINTESTINAL: No distention noted. Abdomen soft and round. Normal active bowel sounds auscultated x 4 quadrants. No pain or tenderness noted upon palpation. INTEGUMENTARY: No cyanosis. No jaundice. No rashes noted. No cellulitis noted. EXTREMITIES: 2+ peripheral pulses. No evidence of peripheral edema. No calf tenderness noted. NEUROLOGIC: Cranial nerves II-XII intact. PSYCHIATRIC: Awake, alert, and oriented X 3. Appropriate affect. Intact judgement and insight. Results CBC & Chem 7: 03/26/19 08:51 03/26/19 08:51 Labs: Abnormal Lab Results - Last 24 Hours (Table) 03/26/19 03/26/19 03/26/19 Range/Units 06:50 08:51 08:51 WBC 12.1 H (3.8-10.6) k/uL Hgb 10.1 L (11.4-16.0) gm/dL Hct 33.5 L (34.0-46.0) % MCV 74.1 L (80.0-100.0) fL MCH 22.2 L (25.0-35.0) pg MCHC 30.0 L (31.0-37.0) g/dL RDW 16.8 H (11.5-15.5) % Neutrophils # 10.0 H (1.3-7.7) k/uL Carbon Dioxide 21 L (22-30) mmol/L Glucose 131 H (74-99) mg/dL POC Glucose (mg/dL) 154 H (75-99) mg/dL 03/26/19 03/26/19 03/26/19 Range/Units 11:37 16:41 20:36 WBC (3.8-10.6) k/uL Hgb (11.4-16.0) gm/dL Hct (34.0-46.0) % MCV (80.0-100.0) fL MCH (25.0-35.0) pg MCHC (31.0-37.0) g/dL RDW (11.5-15.5) % Neutrophils # (1.3-7.7) k/uL Carbon Dioxide (22-30) mmol/L Glucose (74-99) mg/dL POC Glucose (mg/dL) 171 H 170 H 176 H (75-99) mg/dL Thrombosis Risk Factor Assmnt - Choose All That Apply Any of the Below Risk Factors Present?: Yes Each Factor Represents 1 point: Obesity (BMI >25) Other Risk Factors: Yes Each Risk Factor Represents 2 Points: Age 61-74 years Each Risk Factor Represents 3 Points: History of DVT/PE Other congenital or acquired thrombophilia - If yes, enter type in comment: No Thrombosis Risk Factor Assessment Total Risk Factor Score: 6 Thrombosis Risk Factor Assessment Level: High Risk Assessment and Plan (1) Diabetes 1.5, managed as type 2 Current Visit: Yes Status: Acute Code(s): E13.9 - OTHER SPECIFIED DIABETES MELLITUS WITHOUT COMPLICATIONS SNOMED Code(s): 838394046 (2) GI bleed Current Visit: Yes Status: Acute Code(s): K92.2 - GASTROINTESTINAL HEMORRHAGE, UNSPECIFIED SNOMED Code(s): 98270590 (3) Infectious colitis Current Visit: Yes Status: Acute Code(s): A09 - INFECTIOUS GASTROENTERITIS AND COLITIS, UNSPECIFIED SNOMED Code(s): 77198709 Plan: Plan is to admit patient to hospital with full surgical GI consultation and progress. Patient has undergone a prep and is awaiting colonoscopy to be done sometime today. End dictation
[2019-03-27 04:30] VITALS: RESP 16
[2019-03-27] MEDS: SODIUM CHLORIDE 0.9% 1,000 ML IV SCH (07:06)
[2019-03-27 07:29] LABS: Glucose,Whole Blood 116 mg/dL (75-99)
[2019-03-27] MEDS: INSULIN ASPART (NovoLOG) 100 UNIT/ML VIAL SQ SCH ×2 (08:32→12:33)
[2019-03-27] MEDS: LORATADINE 10 MG TAB PO SCH (08:38)
[2019-03-27] MEDS: metFORMIN 500 MG TAB PO SCH (08:38)
[2019-03-27] MEDS: ATORVASTATIN 10 MG TAB PO SCH (08:38)
[2019-03-27] MEDS: glipiZIDE 10 MG TAB PO SCH (08:38)
[2019-03-27] MEDS: NON FORMULARY DRUG (Empagliflozin [Jardiance] 10 MG) PO SCH (08:38)
[2019-03-27] MEDS: PIPERACILLIN-TAZOBACTAM 3.375 GM in SODIUM CHLORIDE 0.9% 100 ML IVPB SCH (08:38)
[2019-03-27] MEDS: POTASSIUM CHLORIDE ER 20 MEQ TAB.ER PO SCH (08:38)
[2019-03-27] MEDS: CYCLOBENZAPRINE 10 MG TAB PO SCH ×2 (08:38→08:39)
[2019-03-27 09:05] LABS: African American GFR (CKD) >90 (>60 ml/min/1.73 sqM); Anion Gap 9 mmol/L; Blood Urea Nitrogen 7 mg/dL (7-17); Calcium 8.8 mg/dL (8.4-10.2); Carbon Dioxide 21 mmol/L (22-30); Chloride 110 mmol/L (98-107); Glucose 115 mg/dL (74-99); Non-African American GFR(CKD) 90 (>60 ml/min/1.73 sqM); Potassium 4.6 mmol/L (3.5-5.1); Sodium 140 mmol/L (137-145)
[2019-03-27 12:25] LABS: Glucose,Whole Blood 169 mg/dL (75-99)
--- NOTE | 2019-03-27 13:47 | P.PN ---
Subjective Progress Note Date: 03/27/19 CHIEF COMPLAINT: Colitis, rectal bleeding HISTORY OF PRESENT ILLNESS: Patient is status post colonoscopy yesterday revealing colitis but overall patient had poor colon prep. Patient reports her abdominal pain has improved. No further episodes of rectal bleeding. She is very anxious to be discharged home today. PHYSICAL EXAM: VITAL SIGNS: Reviewed. GENERAL: Well-developed in no acute distress. HEENT: No sclera icterus. Extraocular movements grossly intact. Moist buccal mucosa. Head is atraumatic, normocephalic. ABDOMEN: Soft. Nondistended. Nontender. Positive bowel sounds. No peritoneal signs. NEUROLOGIC: Alert and oriented. Cranial nerves II through XII grossly intact. ASSESSMENT: 1. Bilateral lower quadrant abdominal pain 2. Bright red blood per rectum 3. Severe acute long segment colitis of the hepatic flexure and proximal descending colon 4. Moderate hiatal hernia 5. History of cholecystectomy PLAN: Patient is very anxious to be discharged home today. She is stable for discharge home from a surgical standpoint on oral antibiotics. She is to follow up with Dr. Lewis outpatient Nurse practitioner note has been reviewed by physician. Signing provider agrees with the documented findings, assessment, and plan of care. Objective - Vital Signs Vital signs: Vital Signs Temp 98.4 F 03/27/19 04:29 Pulse 94 03/27/19 04:29 Resp 16 03/27/19 04:29 BP 148/77 03/27/19 04:29 Pulse Ox 94 L 03/27/19 04:29 Intake & Output 03/26/19 03/27/19 03/27/19 18:59 06:59 18:59 Intake Total 2080 450 Balance 2080 450 Intake: IV 1000 Piperacillin-Tazobactam 3 100 .375 gm In Sodium Chloride 0.9% 100 ml @ 25 mls/hr IVPB Q8HR [facility] Rx# :[id number] Sodium Chloride 0.9% 1, 600 000 ml @ 75 mls/hr IV . [id number] [facility] Rx#:[id number] Oral 1080 450 Other: # Voids 4 2 # Bowel Movements 2 0 - Labs CBC & Chem 7: 03/26/19 08:51 03/27/19 07:52 Labs: Abnormal Lab Results - Last 24 Hours (Table) 03/26/19 03/26/19 03/27/19 Range/Units 16:41 20:36 07:28 Chloride (98-107) mmol/L Carbon Dioxide (22-30) mmol/L Glucose (74-99) mg/dL POC Glucose (mg/dL) 170 H 176 H 116 H (75-99) mg/dL 03/27/19 03/27/19 Range/Units 07:52 12:23 Chloride 110 H (98-107) mmol/L Carbon Dioxide 21 L (22-30) mmol/L Glucose 115 H (74-99) mg/dL POC Glucose (mg/dL) 169 H (75-99) mg/dL
[2019-03-27 14:52] VITALS: BP 138/75; PULSE 108; TEMP 98.6
[2019-03-27 15:12] VITALS: BMI 31.7
--- NOTE | 2019-05-04 18:53 | P.DS ---
Providers Date of admission: 03/25/19 10:21 Expected date of discharge: 03/27/19 Attending physician: Khris Patino Consults: 03/25/19 10:22 Consult Physician Stat Consulting Provider: Kip Lewis Consult Reason/Comments: colitis, GI bleed Do you want consulting provider notified?: Yes Primary care physician: Khris aPtino - Discharge Diagnosis(es) (1) Diabetes 1.5, managed as type 2 Status: Acute (2) GI bleed Status: Acute (3) Infectious colitis Status: Acute Hospital Course: patient is a pleasant 74-year was admitted for infectious colitisshe was cleared for discharge after appropriate treat. Patient Condition at Discharge: Fair Plan - Discharge Summary Discharge Rx Participant: No New Discharge Prescriptions: New Amoxicillin/Potassium Clav [Augmentin 875-125 Tablet] 1 tab PO Q12HR #14 tab Continue Metoprolol Succinate [Toprol XL] 25 mg PO HS Potassium Chloride [Klor-Con 20] 20 meq PO BID Hydrochlorothiazide [Hydrodiuril] 25 mg PO DAILY PRN PRN Reason: Edema Simvastatin [Zocor] 20 mg PO QAM Cyclobenzaprine [Flexeril] 10 mg PO BID Aspirin 325 mg PO DAILY metFORMIN HCL ER [Glucophage Xr] 1,000 mg PO BID glipiZIDE [Glucotrol] 10 mg PO AC-BID Loratadine [Claritin] 10 mg PO DAILY Empagliflozin [Jardiance] 10 mg PO DAILY Discontinued Celecoxib [CeleBREX] 200 mg PO DAILY Discharge Medication List Cyclobenzaprine [Flexeril] 10 mg PO BID 04/22/14 [History] Hydrochlorothiazide [Hydrodiuril] 25 mg PO DAILY PRN 04/22/14 [History] Metoprolol Succinate [Toprol XL] 25 mg PO HS 04/22/14 [History] Potassium Chloride [Klor-Con 20] 20 meq PO BID 04/22/14 [History] Simvastatin [Zocor] 20 mg PO QAM 04/22/14 [History] Aspirin 325 mg PO DAILY 03/25/19 [History] Empagliflozin [Jardiance] 10 mg PO DAILY 03/25/19 [History] Loratadine [Claritin] 10 mg PO DAILY 03/25/19 [History] glipiZIDE [Glucotrol] 10 mg PO AC-BID 03/25/19 [History] metFORMIN HCL ER [Glucophage Xr] 1,000 mg PO BID 03/25/19 [History] Amoxicillin/Potassium Clav [Augmentin 875-125 Tablet] 1 tab PO Q12HR #14 tab 03/27/19 [Rx] Follow up Appointment(s)/Referral(s): Khris Patino DO [Primary Care Provider] - 04/08/19 11:30 am Kip Lewis MD [STAFF PHYSICIAN] - 04/03/19 3:30 pm Patient Instructions/Handouts: Infectious Colitis (GEN) Discharge Disposition: HOME SELF-CARE
== END 2019-03-27 16:15 | disposition home or self-care (01) ==
LOC: EC 07:57 → 4MS4W 10:21
PROVIDERS: ADMIT Family Medicine; ATTEND Family Medicine
DX: A09 Infectious gastroenteritis and colitis, unspecified (principal); E11.9 Type 2 diabetes mellitus without complications; E78.5 Hyperlipidemia, unspecified; I10 Essential (primary) hypertension; K92.2 Gastrointestinal hemorrhage, unspecified; M19.90 Unspecified osteoarthritis, unspecified site; K44.9 Diaphragmatic hernia without obstruction or gangrene; D64.9 Anemia, unspecified; Z90.49 Acquired absence of other specified parts of digestive tract; E66.9 Obesity, unspecified; Z68.31 Body mass index [BMI] 31.0-31.9, adult; Z79.899 Other long term (current) drug therapy; Z79.82 Long term (current) use of aspirin; Z79.1 Long term (current) use of non-steroidal anti-inflammatories (NSAID); Z79.84 Long term (current) use of oral hypoglycemic drugs; Z88.5 Allergy status to narcotic agent; Z91.040 Latex allergy status; Z86.718 Personal history of other venous thrombosis and embolism; Z87.891 Personal history of nicotine dependence; Z87.19 Personal history of other diseases of the digestive system; Z80.7 Family history of other malignant neoplasms of lymphoid, hematopoietic and related tissues; Z82.49 Family history of ischemic heart disease and other diseases of the circulatory system
CPT/HCPCS: 96361 ×3; 96366 ×2; 96365; 96375; 99285; 36415; 93005; 80053; 80048 ×2; 83605; 83690; 83735 ×2; 84484; 85025 ×2; 85610; 85730; 81001; 74177; 45378; G0378 ×3; J2543 ×3; J1610; J2405; J2704; Q9967

== ENCOUNTER → 2019-06-10 | Outpatient (CLI) | payer MEDICARE ==
--- NOTE | 2019-06-11 09:53 | MM ---
Reason for exam: screening (asymptomatic). Last mammogram was performed 1 year and 3 months ago. History: Patient is postmenopausal. Benign left mammotome panel of the left breast, August 09, 2007. Benign left mammotome panel of the left breast, August 09, 2007. Benign right mammotome panel of the right breast, October 19, 2006. Reductions of both breasts, June 2005. Benign right mammotome panel of the right breast, June 02, 2005. Benign excisional biopsy of the right breast, 1959. Physical Findings: A clinical breast exam by your physician is recommended on an annual basis and results should be correlated with mammographic findings. MG 3D Screening Mammo W/Cad Bilateral CC and MLO view(s) were taken. Prior study comparison: March 21, 2018, bilateral MG 3d screening mammo w/cad. March 13, 2017, bilateral MG 3d screening mammo w/cad. There are scattered fibroglandular densities. Benign appearing bilateral calcifications. Previous mammotome biopsy in the right and left breast. There is chronic nodularity bilaterally. No significant changes when compared with prior studies. ASSESSMENT: Benign, BI-RAD 2 RECOMMENDATION: Routine screening mammogram of both breasts in 1 year.
== END | disposition home or self-care (01) ==
LOC: RADMAMWWP 13:48
PROVIDERS: ATTEND Family Medicine
DX: Z12.31 Encounter for screening mammogram for malignant neoplasm of breast (principal)
CPT/HCPCS: 77063; 77067

== ENCOUNTER → 2020-08-16 | Outpatient (CLI) | payer MEDICARE ==
--- NOTE | 2020-08-19 11:08 | MM ---
Reason for exam: screening (asymptomatic). Last mammogram was performed 1 year and 2 months ago. History: Patient is postmenopausal and history of other cancer. Benign left mammotome panel of the left breast, August 09, 2007. Benign left mammotome panel of the left breast, August 09, 2007. Benign right mammotome panel of the right breast, October 19, 2006. Reductions of both breasts, June 2005. Benign right mammotome panel of the right breast, June 02, 2005. Benign excisional biopsy of the right breast, 1959. Physical Findings: A clinical breast exam by your physician is recommended on an annual basis and results should be correlated with mammographic findings. MG 3D Screening Mammo W/Cad Bilateral CC and MLO view(s) were taken. Prior study comparison: June 10, 2019, bilateral MG 3d screening mammo w/cad. March 21, 2018, bilateral MG 3d screening mammo w/cad. There are scattered fibroglandular densities. Previous mammotome biopsy in the right breast x 2 and the left breast. Stable scattered oil cyst and fat necrosis calcifications. Stable focal asymmetry anterior 9 o'clock left breast. No significant changes when compared with prior studies. ASSESSMENT: Benign, BI-RAD 2 RECOMMENDATION: Routine screening mammogram of both breasts in 1 year.
== END | disposition home or self-care (01) ==
LOC: RADMAMWWP 14:40
PROVIDERS: ATTEND Family Medicine
DX: Z12.31 Encounter for screening mammogram for malignant neoplasm of breast (principal)
CPT/HCPCS: 77063; 77067

== ENCOUNTER → 2021-10-12 | Outpatient (CLI) | payer MEDICARE ==
--- NOTE | 2021-10-14 13:18 | MM ---
Reason for Exam: Screening (asymptomatic). Last mammogram was performed 1 year(s) and 2 month(s) ago. Patient History: Menarche at age 9. First Full-Term at age 20. Hysterectomy at age 37. Postmenopausal. Other cancer, age 74. 06/2005, Bilateral Reduction. 1960, Benign Excisional Biopsy on the right side. 08/09/2007, Benign Core Biopsy on the left side. 08/09/2007, Benign Core Biopsy on the left side. 10/19/2006, Benign Core Biopsy on the right side. 06/02/2005, Benign Core Biopsy on the right side. Risk Values: Dionna 5 year model risk: 2.6%. NCI Lifetime model risk: 5.3%. Film Views: Bilateral CC views were taken. Bilateral MLO views were taken. Bilateral XCCL views were taken. Left LMO views were taken. Prior Study Comparison: 03/21/2018 Bilateral Screening Mammogram, [facility]. 06/10/2019 Bilateral Screening Mammogram, [facility]. 08/16/2020 Bilateral Screening Mammogram, [facility]. Tissue Density: There are scattered fibroglandular densities. Findings: Analyzed By CAD. Benign biopsy clips bilaterally redemonstrated. Subtle distortion with dystrophic calcification right breast lower inner aspect redemonstrated and stable from prior examination. Occasional scattered benign round calcifications bilaterally are redemonstrated. There is no suspicious new group of microcalcifications or new suspicious mass in either breast. Overall Assessment: Benign, BI-RAD 2 Management: Screening Mammogram of both breasts in 1 year. A clinical breast exam by your physician is recommended on an annual basis and results should be correlated with mammographic findings. Electronically signed and approved by: Pieter Matta M.D.
== END | disposition home or self-care (01) ==
LOC: RADMAMWWP 13:44
PROVIDERS: ATTEND Family Medicine
DX: Z12.31 Encounter for screening mammogram for malignant neoplasm of breast (principal); Z78.0 Asymptomatic menopausal state
CPT/HCPCS: 77063; 77067

== ENCOUNTER → 2022-10-17 | Outpatient (CLI) | payer MEDICARE ==
--- NOTE | 2022-10-18 19:19 | MM ---
Reason for Exam: Screening (asymptomatic). Last screening mammogram was performed 12 month(s) ago. Patient History: Menarche at age 9. First Full-Term at age 20. Hysterectomy at age 37. Postmenopausal. Patient has history of breast feeding. 06/2005, Bilateral Reduction. 1960, Benign Excisional Biopsy on the right side. 08/09/2007, Benign Core Biopsy on the left side. 08/09/2007, Benign Core Biopsy on the left side. 10/19/2006, Benign Core Biopsy on the right side. 06/02/2005, Benign Core Biopsy on the right side. Risk Values: Dionna 5 year model risk: 2.6%. NCI Lifetime model risk: 4.9%. Prior Study Comparison: 06/10/2019 Bilateral Screening Mammogram, [facility]. 08/16/2020 Bilateral Screening Mammogram, [facility]. 10/12/2021 Bilateral MG 3D screening mammo w/cad, [facility]. Tissue Density: There are scattered fibroglandular densities. Findings: Analyzed By CAD. 2 microclips in the right breast and one microclip in the left breast from prior biopsies. Benign with this calcification scattered in both breasts. There is no suspicious group of microcalcifications or new suspicious mass in either breast. Overall Assessment: Benign, BI-RAD 2 Management: Screening Mammogram of both breasts in 1 year. . Patient should continue monthly self-breast exams. A clinical breast exam by your physician is recommended on an annual basis. This exam should not preclude additional follow-up of suspicious palpable abnormalities. Note on Dionna scores and lifetime risk: 1. A Dionna score greater than 3% is considered moderate risk. If this is the case, consider specialist referral to assess eligibility for a risk reducing agent. 2. If overall lifetime risk for the development of breast cancer is 20% or higher, the patient may qualify for future screening with alternating mammogram and breast MRI. Electronically signed and approved by: Prabhjot Parker M.D. Radiologist
== END | disposition home or self-care (01) ==
LOC: RADMAMWWP 11:20
PROVIDERS: ATTEND Family Medicine
DX: Z12.31 Encounter for screening mammogram for malignant neoplasm of breast (principal); Z78.0 Asymptomatic menopausal state
CPT/HCPCS: 77063; 77067

== ENCOUNTER → 2023-11-09 | Outpatient (CLI) | payer MEDICARE ==
--- NOTE | 2023-11-12 07:58 | MM ---
Reason for Exam: Screening (asymptomatic). Last mammogram was performed 1 year(s) and 1 month(s) ago. Patient History: Menarche at age 9. First Full-Term at age 20. Hysterectomy at age 37. Postmenopausal. Patient has history of breast feeding. 06/2005, Bilateral Reduction. 1960, Benign Excisional Biopsy on the right side. 08/09/2007, Benign Core Biopsy on the left side. 08/09/2007, Benign Core Biopsy on the left side. 10/19/2006, Benign Core Biopsy on the right side. 06/02/2005, Benign Core Biopsy on the right side. Risk Values: Dionna 5 year model risk: 2.5%. NCI Lifetime model risk: 4.1%. Prior Study Comparison: 08/16/2020 Bilateral Screening Mammogram, [facility]. 10/12/2021 Bilateral MG 3D screening mammo w/cad, [facility]. 10/17/2022 Bilateral MG 3D screening mammo w/cad, [facility]. Tissue Density: The breasts are heterogeneously dense, which may obscure small masses. Findings: Analyzed By CAD. There is no suspicious group of microcalcifications or new suspicious mass in either breast. Overall Assessment: Benign, BI-RAD 2 Management: Screening Mammogram of both breasts in 1 year. . Patient should continue monthly self-breast exams. A clinical breast exam by your physician is recommended on an annual basis. This exam should not preclude additional follow-up of suspicious palpable abnormalities. Note on Dionna scores and lifetime risk: 1. A Dionna score greater than 3% is considered moderate risk. If this is the case, consider specialist referral to assess eligibility for a risk reducing agent. 2. If overall lifetime risk for the development of breast cancer is 20% or higher, the patient may qualify for future screening with alternating mammogram and breast MRI. Electronically signed and approved by: Clay Wagner M.D. Radiologis
== END | disposition home or self-care (01) ==
LOC: RADMAMWWP 13:25
PROVIDERS: ATTEND Family Medicine
DX: Z12.31 Encounter for screening mammogram for malignant neoplasm of breast (principal); Z78.0 Asymptomatic menopausal state
CPT/HCPCS: 77063; 77067